=== PATIENT | female | born 1995 | race Caucasian/White ===

== ENCOUNTER → 2019-01-20 | Outpatient (CLI) | payer OTHER ==
--- NOTE | 2019-01-20 21:21 | Diagnostic Imaging Report ---
INDICATION: Palpable lump in the left axilla. Sonographic interrogation of the area of lump in left axilla was performed. There is a tiny hypoechoic nodule just below the skin surface measuring approximately 3 mm x 5 mm. No internal vascularity is seen. No other abnormalities are identified. IMPRESSION: Tiny hypoechoic nodule subcutaneous tissues left axilla. This is nonspecific and may represent small sebaceous cyst. Study is otherwise unremarkable. ACR BI-RADS Category 2: Benign findings. Dictated by: Dictated on workstation # [id number]
== END ==
LOC: RAD FS 13:00
PROVIDERS: ATTEND Emergency Medicine
DX: R22.32 Localized swelling, mass and lump, left upper limb (principal)
CPT/HCPCS: 76642

== ENCOUNTER 2019-08-08 17:32 | Emergency (ER) | payer OTHER ==
[~2019-08-08] VITALS: Ht 170 cm; Wt 143.0 kg
--- NOTE | 2019-08-08 17:50 | ED Respiratory ---
General Chief Complaint: Respiratory Problems Stated Complaint: SOB Source: patient Exam Limitations: no limitations History of Present Illness Date Seen by Provider: Aug 08, 2019 Time Seen by Provider: 17:46 Initial Comments 23-year-old female presents with what she feels like his "chest tightness" or a hard time taking a deep breath. She reports it started last night when she was at work. Patient denies chest pain. She denies cough, fevers or chills. She went to urgent care who sent her to the ER because they said her heart rate was fast. She denies any calf tenderness, she is on phentermine and is taking Clomid to get but no other medications. Allergies and Home Medications Allergies Coded Allergies: No Known Drug Allergies (Unverified , 08/08/19) Patient Home Medication List Home Medication List Reviewed: Yes Review of Systems Review of Systems Constitutional: No chills, No dizziness, No fever EENTM: no symptoms reported Respiratory: see HPI; No cough, No orthopnea, No wheezing Cardiovascular: No chest pain, No palpitations Gastrointestinal: No abdominal pain, No nausea, No vomiting Musculoskeletal: no symptoms reported Skin: no symptoms reported Past Cslxeze-Mvikka-Xfiwow Hx Past Med/Social Hx: Reviewed Nursing Past Med/Soc Hx Patient Social History Recent Foreign Travel: No Contact w/Someone Who Travel: No Physical Exam Vital Signs - First Documented 08/08/19 08/08/19 17:52 19:35 Temp 36.9 Pulse 116 Resp 18 B/P (MAP) 156/119 (131) Pulse Ox 99 O2 Delivery Room Air Capillary Refill : Height: '" Weight: lbs. oz. kg; BMI Method: General Appearance: WD/WN, no apparent distress, obese Neck: non-tender, full range of motion Respiratory: lungs clear, normal breath sounds, no respiratory distress, no accessory muscle use Cardiovascular: normal peripheral pulses, no edema, tachycardia Gastrointestinal: non tender, soft Neurologic/Psychiatric: no motor/sensory deficits, alert, normal mood/affect, oriented x 3 Skin: normal color, warm/dry Progress/Results/Core Measures Suspected Sepsis SIRS Temperature: Pulse: Respiratory Rate: Laboratory Tests 08/08/19 18:09: White Blood Count 8.2 Blood Pressure / Mean: Laboratory Tests 08/08/19 18:09: Creatinine 0.75, Platelet Count 305, Total Bilirubin 0.3 Results/Orders Lab Results Laboratory Tests Test 08/08/19 18:09 Range/Units White Blood Count 8.2 4.3-11.0 10^3/uL Red Blood Count 4.79 4.35-5.85 10^6/uL Hemoglobin 13.6 11.5-16.0 G/DL Hematocrit 41 35-52 % Mean Corpuscular Volume 86 80-99 FL Mean Corpuscular Hemoglobin 28 25-34 PG Mean Corpuscular Hemoglobin Concent 33 32-36 G/DL Red Cell Distribution Width 12.9 10.0-14.5 % Platelet Count 305 130-400 10^3/uL Mean Platelet Volume 9.9 7.4-10.4 FL Neutrophils (%) (Auto) 54 42-75 % Lymphocytes (%) (Auto) 35 12-44 % Monocytes (%) (Auto) 8 0-12 % Eosinophils (%) (Auto) 2 0-10 % Basophils (%) (Auto) 1 0-10 % Neutrophils # (Auto) 4.4 1.8-7.8 X 10^3 Lymphocytes # (Auto) 2.8 1.0-4.0 X 10^3 Monocytes # (Auto) 0.7 0.0-1.0 X 10^3 Eosinophils # (Auto) 0.2 0.0-0.3 10^3/uL Basophils # (Auto) 0.1 0.0-0.1 10^3/uL D-Dimer 0.34 0.00-0.49 UG/ML Sodium Level 139 135-145 MMOL/L Potassium Level 3.5 L 3.6-5.0 MMOL/L Chloride Level 104 98-107 MMOL/L Carbon Dioxide Level 24 21-32 MMOL/L Anion Gap 11 5-14 MMOL/L Blood Urea Nitrogen 12 7-18 MG/DL Creatinine 0.75 0.60-1.30 MG/DL Estimat Glomerular Filtration Rate > 60 BUN/Creatinine Ratio 16 Glucose Level 113 H 70-105 MG/DL Calcium Level 9.3 8.5-10.1 MG/DL Corrected Calcium 9.1 8.5-10.1 MG/DL Magnesium Level 1.7 1.6-2.4 MG/DL Total Bilirubin 0.3 0.1-1.0 MG/DL Aspartate Amino Transf (AST/SGOT) 25 5-34 U/L Alanine Aminotransferase (ALT/SGPT) 31 0-55 U/L Alkaline Phosphatase 77 40-136 U/L C-Reactive Protein 0.18 <0.50 MG/DL Total Protein 7.0 6.4-8.2 GM/DL Albumin 4.2 3.2-4.5 GM/DL My Orders Orders - ROJAS,ROSELIA L DO Cbc With Automated Diff (08/08/19 17:50) Comprehensive Metabolic Panel (08/08/19 17:50) Chest 1 View Ap/Pa Only (08/08/19 17:50) Fibrin Degradation Products (08/08/19 17:50) Magnesium (08/08/19 17:50) Ekg Tracing (08/08/19 17:50) Ed Iv/Invasive Line Start (08/08/19 17:50) Monitor-Rhythm Ecg Trace Only (08/08/19 17:50) Crp Fs (08/08/19 17:50) Albuterol/Ipra Inhalation Soln (Duoneb I (08/08/19 18:00) Svn Small Volume Nebulizer (08/08/19 17:51) Ed Iv/Invasive Line Start (08/08/19 18:18) Ns Iv 500 Ml (Sodium Chloride 0.9%) (08/08/19 18:18) Ed Iv/Invasive Line Start (08/08/19 18:50) Ns Iv 500 Ml (Sodium Chloride 0.9%) (08/08/19 18:50) Medications Given in ED Current Medications Medications Dose Ordered Sig/Romi Route Start Time Stop Time Status Last Admin Dose Admin Albuterol/ Ipratropium 3 ml ONCE ONCE INH 08/08/19 18:00 08/08/19 18:01 DC 08/08/19 18:11 3 ML Sodium Chloride 500 ml @ 0 mls/hr Q0M ONCE IV 08/08/19 18:18 08/08/19 18:20 DC 08/08/19 18:25 999 MLS/HR Sodium Chloride 500 ml @ 0 mls/hr Q0M ONCE IV 08/08/19 18:50 08/08/19 18:51 DC 08/08/19 18:58 999 MLS/HR Vital Signs/I&O 08/08/19 08/08/19 17:52 19:35 Temp 36.9 Pulse 116 107 Resp 18 18 B/P (MAP) 156/119 (131) 140/76 Pulse Ox 99 100 O2 Delivery Room Air Capillary Refill : Progress Note : Time: 19:21 Progress Note Patient with mild sinus tachycardia throughout her stay. She had a negative EKG outside of the mouth sinus tachycardia, negative troponin, negative d-dimer, negative x-ray. I had along discussion with her with the need to follow-up with her primary care provider for further outpatient. I discussed with her that it could possibly be a side effect of her phentermine or other type of etiology. I recommend she follow up for a Holter monitor, possible outpatient stress echo and possible cardiology consult if needed ECG Initial ECG Rhythm: S.Tach Initial ECG Intervals: Normal Initial ECG Impression: Normal Diagnostic Imaging Diagonstic Imaging: Xray Plain Films/CT/US/NM/MRI: chest Reviewed: Reviewed/Discussed Departure Impression Primary Impression: Tachycardia Disposition: 01 HOME, SELF-CARE Condition: Stable Departure-Patient Inst. Referrals: MARY LOU COELLO DO (PCP/Family) Primary Care Physician Patient Instructions: Tachycardia (DC), Vagal Maneuvers and Their Responses Add. Discharge Instructions: Follow-up with her primary care provider in one to 2 days for recheck of symptoms, further outpatient evaluation and possible cardiology consult All discharge instructions reviewed with patient and/or family. Voiced understanding. ROSELIA ROJAS DO Aug 08, 2019 17:50 POS
[2019-08-08] MEDS ORDERED: RT-ALBUTEROL/IPRATROPIUM 3 ML (DUONEB) VIAL INH ONE (18:00)
--- NOTE | 2019-08-08 18:09 | Diagnostic Imaging Report ---
EXAMINATION: Chest radiograph, portable AP view. DATE: 08/08/2019 6:03 PM hours. INDICATION: 23-year-old female, shortness of breath. COMPARISON: None. FINDINGS: Heart size and mediastinal contours are unremarkable. There is no identified pneumothorax. There is no large pleural effusion. There is no identified focal airspace consolidation. IMPRESSION: No identified acute cardiopulmonary abnormality. Dictated by: Dictated on workstation # [id number]
[2019-08-08] MEDS ORDERED: NS IV 500 ML 500 ML IV ONE ×2 (18:18→18:50)
[2019-08-08 18:23] LABS: HEMATOCRIT 41 % (35-52); HEMOGLOBIN 13.6 G/DL (11.5-16.0); MEAN CORPUSCULAR HEMOGLOBIN 28 PG (25-34); MEAN CORPUSCULAR HGB CONC 33 G/DL (32-36); MEAN CORPUSCULAR VOLUME 86 FL (80-99); WHITE BLOOD COUNT 8.2 10^3/uL (4.3-11.0)
[2019-08-08 18:24] LABS: BASOPHILS # (AUTO) 0.1 10^3/uL (0.0-0.1); BASOPHILS % (AUTO) 1 % (0-10); EOSINOPHILS # (AUTO) 0.2 10^3/uL (0.0-0.3); EOSINOPHILS % (AUTO) 2 % (0-10); LYMPHOCYTES # (AUTO) 2.8 X 10^3 (1.0-4.0); LYMPHOCYTES % (AUTO) 35 % (12-44); MEAN PLATELET VOLUME 9.9 FL (7.4-10.4); MONOCYTES # (AUTO) 0.7 X 10^3 (0.0-1.0); MONOCYTES % (AUTO) 8 % (0-12); NEUTROPHILS # (AUTO) 4.4 X 10^3 (1.8-7.8); NEUTROPHILS % (AUTO) 54 % (42-75); PLATELET COUNT 305 10^3/uL (130-400); RED CELL DISTRIBUTION WIDTH 12.9 % (10.0-14.5)
[2019-08-08 18:47] LABS: ALANINE AMINOTRANSFERASE 31 U/L (0-55); ALBUMIN 4.2 GM/DL (3.2-4.5); ALKALINE PHOSPHATASE 77 U/L (40-136); BILIRUBIN,TOTAL 0.3 MG/DL (0.1-1.0); BUN/CREATININE RATIO 16; CALCIUM 9.3 MG/DL (8.5-10.1); CARBON DIOXIDE 24 MMOL/L (21-32); CHLORIDE 104 MMOL/L (98-107); CREATININE SERUM 0.75 MG/DL (0.60-1.30); GFR ESTIMATED > 60; GLUCOSE 113 MG/DL (70-105); MAGNESIUM 1.7 MG/DL (1.6-2.4); POTASSIUM 3.5 MMOL/L (3.6-5.0); SODIUM 139 MMOL/L (135-145)
[2019-08-08 19:35] VITALS: BP 140/76
== END 2019-08-08 19:35 | disposition home or self-care (01) ==
LOC: EDUNIT# 17:32 → ER FS 17:34
DX: R00.0 Tachycardia, unspecified (principal)
CPT/HCPCS: 36415; 71045; 80053; 83735; 85025; 85379; 86141; 93005; 93041; 96360